=== PATIENT | female | born 1945 | race Caucasian/White ===

== ENCOUNTER 2016-09-04 14:48 | Observation (INO) | payer MEDICARE, OTHER ==
[~2016-09-04] VITALS: Ht 162.6 cm; Wt 90.0 kg
[~2016-09-04 14:48] MED LIST: AVAPRO TAB150 MG/TAB PO; CELEXA 20MG20 MG/TAB PO; MULTI VITAMINS1 TAB PO; PREMPRO 0.3 MG-1 TAB PO; PRILOSEC 20MG20 MG PO; TYLENOL 325MG325 MG PO; VITAMIN D32000 I1 PO; ZYRTEC 10MG10 MG PO
[2016-09-04 15:20] VITALS: BP 168/80; PULSE 94; TEMP 97.6
[2016-09-04] MEDS ORDERED: CEFACLOR500 M2 PO (16:11)
[2016-09-04] MEDS ORDERED: PRILOSEC 20MG20 MG PO (16:12)
[2016-09-04 17:31] VITALS: BP 168/80; PULSE 87; TEMP 983.6
[2016-09-04 20:19] LABS: PH 7 (5-8); URINE APPEARANCE Clear; URINE BILIRUBIN Negative (NEGATIVE); URINE COLOR Yellow; URINE GLUCOSE Negative (NEGATIVE); URINE KETONE Trace (NEGATIVE); URINE UROBILINOGEN Negative (NEGATIVE)
[2016-09-04 20:20] LABS: URINE BLOOD Negative (NEGATIVE)
[2016-09-04 20:37] LABS: SQUAMOUS EPITHELIAL 0-2 /hpf; URINE WBC 0-2 /hpf
[2016-09-04] MEDS ORDERED: AVAPRO300 M1 PO (21:35)
[2016-09-04] MEDS ORDERED: PREMPRO 0.3 MG-1 TAB PO (21:37)
[2016-09-04 22:02] VITALS: BP 176/99; PULSE 88; TEMP 99.3
[2016-09-04 22:30] VITALS: BP 127/83
[2016-09-05 01:42] VITALS: BP 142/84; PULSE 89; TEMP 98.2
[2016-09-05 05:26] VITALS: BP 129/63; PULSE 84; TEMP 98.3
[2016-09-05 10:17] VITALS: BP 132/80; PULSE 111; TEMP 97.5
== END 2016-09-05 11:08 | disposition home or self-care (01) ==
LOC: SURG 14:48
PROVIDERS: Urology
DX: N20.0 Calculus of kidney (principal); E83.52 Hypercalcemia; I10 Essential (primary) hypertension; K58.9 Irritable bowel syndrome, unspecified; M81.0 Age-related osteoporosis without current pathological fracture; E55.9 Vitamin D deficiency, unspecified; E21.3 Hyperparathyroidism, unspecified; K57.90 Diverticulosis of intestine, part unspecified, without perforation or abscess without bleeding; L40.9 Psoriasis, unspecified; Z80.52 Family history of malignant neoplasm of bladder; Z80.0 Family history of malignant neoplasm of digestive organs; Z87.891 Personal history of nicotine dependence
CPT/HCPCS: G0378; G0379; J0696; J1170; J2405; J7120

== ENCOUNTER → 2017-04-08 | Outpatient (CLI) | payer MEDICARE, OTHER ==
[~2017-04-08] MED LIST changes: +AVAPRO300 M1 PO; +CEFACLOR500 M2 PO
== END ==
LOC: MC.RAD 13:00
DX: Z12.31 Encounter for screening mammogram for malignant neoplasm of breast (principal)

== ENCOUNTER → 2019-10-07 | Outpatient (CLI) | payer MEDICARE, OTHER | LOC: MC.RAD 12:00 | DX: Z12.31 Encounter for screening mammogram for malignant neoplasm of breast (principal) ==

== ENCOUNTER → 2019-11-09 | Outpatient (CLI) | payer MEDICARE, OTHER | LOC: COL.RAD 11-04 08:30 | DX: N13.2 Hydronephrosis with renal and ureteral calculous obstruction (principal); K57.30 Diverticulosis of large intestine without perforation or abscess without bleeding ==

== ENCOUNTER 2019-11-23 16:44 | Observation (INO) | payer MEDICARE, OTHER ==
[~2019-11-23] VITALS: Ht 162.6 cm; Wt 82.4 kg
[~2019-11-23 16:44] MED LIST changes: -MULTI VITAMINS1 TAB PO; +ONE-A-DAY ESSE1 EACH PO
[2019-11-23 18:28] VITALS: BP 159/82; PULSE 75; TEMP 98
--- NOTE | 2019-11-23 18:37 | NUR ---
Patient up to room by wheelchair. Stern to dependent drainage with hazy pink urine in bag. Oriented to room. Bed alarm on. Will report off to overnight houseperson.
[2019-11-23 23:27] VITALS: BP 156/87; PULSE 80; TEMP 97.5
[2019-11-24 03:41] VITALS: BP 161/81; BP 177/92; PULSE 67; TEMP 97.8
--- NOTE | 2019-11-24 04:40 | NUR ---
Patient has slept well throughout the night. Noted to be confused about where and why she is here. Reported that patient has problems with memory and has dementia. 5 page attempted, but patient was confused. 5 page completed with information on the chart. Unable to complete med rec d/t patient. Patient continues to be NPO. LR continues to right hand. Denies any needs. Will continue to monitor.
[2019-11-24] MEDS ORDERED: COLACE 100100 MG/CAP PO (08:23)
[2019-11-24 09:36] VITALS: BP 172/88; PULSE 79; TEMP 98.6
--- NOTE | 2019-11-24 10:30 | NUR ---
Patient has been very confused today. Discontinuing dover catheter at this time. Removed 10ml from catheter balloon, and pulled dover out. Patient tolerated it well. Leena-care provided. Patient stated she is incontinent and voids all the time. She also stated she does not walk and has a lot of falls at home. Patient denies nausea. Only complaints of pain or to her lower back, she has chronic pain. No other changes at this time. Call light within reach. Bed alarm on.
[2019-11-24 11:52] VITALS: BP 177/79; PULSE 83; TEMP 98.3
[2019-11-24 15:52] VITALS: BP 167/80; PULSE 92; TEMP 98.9
--- NOTE | 2019-11-24 16:57 | NUR ---
The patient's nurse informed EDDIE that the patient states she has lots of falls at home. Mini Shifter met with the patient to complete initial intake. The patient lives in [place] with her daughter and . The patient has a cane and walker. The patient's PCP is Dr. Ellis and patient receives medications from [email or web address] in . The patient does not have advanced directives in the EMR. The patient would like to go home at discharge. EDDIE offered HHS and the patient states the house is to messy for anyone to come over. The patient reports falling out of bed many times at night. Per patient "there is lots of falling down at least 3 times a week." The patient states there is are lots of pets in the home, "four dogs and lots of kittens" and "they poop and pee everywhere." When asked about cleaning she states "I have not cleaned since June." Per patient she is "not allowed" to go outside because the steps are not sturdy. Per patient her daughter "tucks her in (bed) tight" so that she will not fall out of bed. She reports incontinence at night. She states she eats "only junk food and sweets." cushion worker contacted the patient's . He states the patient hoards and has things everywhere. SW discussed HHS with him and he would like to speak to their daughter about it. EDDIE attempted to contact the patient's daughter, Hyun left message. EDDIE contacted Ayah Berumen with [facility]. EDDIE made a APS report. Intake # [id number].
--- NOTE | 2019-11-24 18:00 | NUR ---
This afternoon patient stated she is at home alone a lot and she falls a lot. She stated her daughter helps her in the afternoons but in the daytime nobody is there to help so she crawls to the bathroom a lot because she can't walk or she falls and can't get back up. Notified Social work and put in orders for PT/OT. Patient stated she does not want to go to a custodial. Explained that her current situation does not sound safe though and maybe some PT will help. Patient verbalized understanding. No other changes at this time. Call light within reach.
[2019-11-24 19:29] VITALS: BP 175/90; PULSE 92; TEMP 98.4
--- NOTE | 2019-11-24 20:00 | NUR ---
Received report from ROXANA Lomeli. Pt is currently awake and sitting up in bed. Pt has her call light within reach and her bed is in lowest position.
[2019-11-24 23:37] VITALS: BP 141/70; PULSE 85; TEMP 98.4
--- NOTE | 2019-11-25 01:00 | NUR ---
Pt has took little short naps during the night. Pt was incontinent throughout the night. Pt did inform me that she does this all the time. She stated that she just goes and goes. Pt is currently in bed and has he call light within reach at this time.
[2019-11-25 04:25] VITALS: BP 144/79; PULSE 76; TEMP 98.4
--- NOTE | 2019-11-25 07:00 | NUR ---
Reported off to ROXANA Lomeli. Pt is currently sitting up in bed and eating breakfast. Pt has her call light within reach and her bed is in lowest position .
[2019-11-25 07:53] VITALS: BP 147/89; PULSE 85; TEMP 98.9
--- NOTE | 2019-11-25 09:37 | NUR ---
Home Care Assistant contacted the patient's , Balbir regarding HHS. Balbir was hesitant to set up HHS but then was agreeable. Balbir states their daughter will transport the patient today after 1600. Since the patient is obs status the PCP will need to set up HHS. EDDIE contacted Ayah Berumen RN CM with [facility]. Ayah will collaborate with Dr. Ellis to set up [facility] for the patient.
--- NOTE | 2019-11-25 11:00 | NUR ---
Social work has been working hard to figure arrangements for patient to go home safely. So far the best we can get is home health. Patient is upset about needing assistance at home. She wants to be able to stay home. Explained she needs to work on getting stronger and getting some physical therapy. She verbalized understanding. She continues to be incontinent. No other changes at this time. Call light within reach. PT and OT worked with her and she was able to take a few steps with walker. Patient is up in the chair and chair alarm is on.
--- NOTE | 2019-11-25 11:38 | NUR ---
PT/OT is recommending SNF for the patient. EDDIE contacted the patient's , left message. EDDIE contacted the patient's daughter, Hyun to discuss placement. The patient is obs status and has not been hospitalized in the last 30 days. The patient would have to be private pay at a prison for post acute rehab. The family will not and cannot afford to private pay. However, Hyun was agreeable to sending referral to [facility]. Hyun reports the patient is to have an appointment with Dr. Saini and an appointment with the PCP. Hyun states that the patient refuses to use shower equipment purchased for her. Per Hyun, the patient does not want help and does not cook due to her forgetfulness. The patient's brings food to the patient from local diners. Hyun reports that the patient sometimes has trouble swallowing her medications. EDDIE informed HERMINIA Kumar Director of the referral. EDDIE contacted Mandi with APS and she reports the case was assigned to her. ST was ordered for the patient. EDDIE collaborated the above information with the patient's nurse.
[2019-11-25 12:38] VITALS: BP 158/85; PULSE 82; TEMP 98.1
--- NOTE | 2019-11-25 13:10 | NUR ---
[facility] cannot accept the patient. Accelerator Operator to inform Hyun.
--- NOTE | 2019-11-25 13:55 | NUR ---
The patient's , Balbir contacted EDDIE. EDDIE informed him of PT/OT recommendations and [facility] decision of not accepting . He was agreeable to HHS for the patient and having PCP choose an agency. The patient will discharge today, 11/24 with [facility]. These services were arranged by Ayah Berumen at [facility]. EDDIE attempted to contact Ayah to provide an update. Ayah reports that Dr. Ellis chose [facility] to provide HHS. There are no additional needs at this time.
[2019-11-25] MEDS ORDERED: LEVAQUIN 5500 MG/TA1 PO (16:33)
--- NOTE | 2019-11-25 17:50 | NUR ---
Discharge instructions discussed with patient and her daughter. No questions verbalized. Discussed what to do when home health comes to see her. Patient and daughter verbalized understanding. Copies of discharge instructions sent with patient. Earlier patients daughter stated she can not take pills very well and has issues with swallowing liquids. ST seen patient and stated she did fine, no issues with liquids or pills. Explained that the Dr's office will notify them of her follow up appointment. Called in prescription for levaquin to [facility] in [place]. Call belongings packed up and sent with patient. Patient walked out via wheel chair by Tonio PARKER.
== END 2019-11-25 17:50 | disposition home health service (06) ==
LOC: SURG 16:44
PROVIDERS: ADMIT Urology
DX: N20.2 Calculus of kidney with calculus of ureter (principal); N13.8 Other obstructive and reflux uropathy; N99.71 Accidental puncture and laceration of a genitourinary system organ or structure during a genitourinary system procedure; E21.3 Hyperparathyroidism, unspecified; R32 Unspecified urinary incontinence; R35.0 Frequency of micturition; F32.9 Major depressive disorder, single episode, unspecified; I10 Essential (primary) hypertension; L40.9 Psoriasis, unspecified; K58.9 Irritable bowel syndrome, unspecified; N87.9 Dysplasia of cervix uteri, unspecified; M81.0 Age-related osteoporosis without current pathological fracture; M19.90 Unspecified osteoarthritis, unspecified site; E66.01 Morbid (severe) obesity due to excess calories; Z68.33 Body mass index [BMI] 33.0-33.9, adult; Z80.52 Family history of malignant neoplasm of bladder; Z88.7 Allergy status to serum and vaccine; Z91.040 Latex allergy status; Z91.041 Radiographic dye allergy status; Z79.899 Other long term (current) drug therapy; Z80.0 Family history of malignant neoplasm of digestive organs; Z83.3 Family history of diabetes mellitus; Z87.891 Personal history of nicotine dependence; Z83.2 Family history of diseases of the blood and blood-forming organs and certain disorders involving the immune mechanism
CPT/HCPCS: G0378; J1956; J7120

== ENCOUNTER → 2019-12-21 | Outpatient (CLI) | payer MEDICARE, OTHER ==
[~2019-12-21] MED LIST changes: +COLACE 100100 MG/CAP PO; +LEVAQUIN 5500 MG/TA1 PO
== END ==
LOC: COL.RAD 12:10
DX: I67.9 Cerebrovascular disease, unspecified (principal)

== ENCOUNTER → 2020-01-24 | Outpatient (CLI) | payer MEDICARE, OTHER | LOC: COL.VAS 12:30 | DX: M79.662 Pain in left lower leg (principal); M79.661 Pain in right lower leg; M79.89 Other specified soft tissue disorders ==

== ENCOUNTER → 2020-03-02 | Outpatient (CLI) | payer MEDICARE, OTHER | LOC: COL.RAD 03-01 10:30 | DX: E21.3 Hyperparathyroidism, unspecified (principal) | CPT/HCPCS: A9500 ==

== ENCOUNTER → 2020-03-24 | Outpatient (CLI) | payer MEDICARE, OTHER | LOC: COL.RAD 14:00 | DX: R25.2 Cramp and spasm (principal) ==

== ENCOUNTER 2022-02-11 12:03 | Emergency (ER) | payer MEDICARE, OTHER ==
[~2022-02-11] VITALS: Ht 167.6 cm; Wt 78.6 kg
[2022-02-11 12:06] VITALS: TEMP 98.3
[2022-02-11 14:27] LABS: COLLECTION METHOD CLEAN CATCH
[2022-02-11 14:35] LABS: BASO # 0.1 K/mm3 (0.0-0.2); EOS # 0.2 K/mm3 (0.0-0.7); EOS % 2.5 % (0.0-4.0); GRAN # 5.3 K/mm3 (1.4-6.5); GRAN % 65.5 % (42.2-75.2); HEMATOCRIT 45.1 % (37.0-47.0); HEMOGLOBIN 15.1 g/dl (12.5-16.0); LYMPH # 1.9 K/mm3 (1.2-3.4); LYMPH % 23.5 % (20.0-51.0); MEAN CELL VOLUME 89 fl (80.0-100.0); MEAN CORPUSCULAR HEMOGLOBIN 30 pg (27-31); MEAN CORPUSCULAR HGB CONC 34 g/dl (33.0-37.0); MEAN PLATELET VOLUME 10.5 fl (7.4-10.4); MONO # 0.6 K/mm3 (0.1-0.6); MONO % 7.1 % (1.7-9.3); PLATELET COUNT 332 K/mm3 (130-400); RED BLOOD COUNT 5.05 M/mm3 (4.10-5.30); REDCELL DISTRIBUTION WIDTH-CV 12.4 % (11.5-14.5)
[2022-02-11 14:48] LABS: MUCOUS Present (NOT PRESENT); SQUAMOUS EPITHELIAL 0-2 /hpf (0-10); URINE BACTERIA Rare /hpf (NONE SEEN); URINE CALCIUM OXALATE CRYSTAL Present (NOT PRESENT); URINE RBC >50 /hpf (0-2)
[2022-02-11 14:51] LABS: URINE APPEARANCE Hazy (CLEAR/HAZY); URINE COLOR Yellow (YELLOW); URINE GLUCOSE Negative (NEGATIVE); URINE KETONE Negative (NEGATIVE); URINE NITRATE Negative (NEGATIVE); URINE PROTEIN(semi-quant) TRACE (NEGATIVE); URINE UROBILINOGEN 0.2 (NEGATIVE)
[2022-02-11 14:52] LABS: ALBUMIN 4.2 gm/dL (3.4-4.8); BILIRUBIN,TOTAL 1.5 mg/dL (0.2-1.2); CALCIUM 10.5 mg/dL (8.4-10.2); CREATININE, serum 1.14 mg/dL (0.57-1.11); POTASSIUM 3.6 mmol/L (3.5-4.5); TOTAL PROTEIN 8.1 gm/dL (6.2-8.1); URINE BLOOD 2+ (NEGATIVE)
[2022-02-11] MEDS ORDERED: CEPHALEXIN500 M1 PO (16:01)
[2022-02-11 16:11] VITALS: BP 145/90; PULSE 82
== END 2022-02-11 16:24 | disposition home or self-care (01) ==
LOC: COL.ER 12:03
PROVIDERS: Emergency Medicine
DX: N30.91 Cystitis, unspecified with hematuria (principal); K82.8 Other specified diseases of gallbladder; R74.8 Abnormal levels of other serum enzymes; R74.01 Elevation of levels of liver transaminase levels; Z87.442 Personal history of urinary calculi; Z91.040 Latex allergy status; Z28.310 Unvaccinated for COVID-19
CPT/HCPCS: J0696; J2270; J2765; J7120

== ENCOUNTER → 2022-02-12 | Outpatient (CLI) | payer MEDICARE, OTHER ==
[~2022-02-12] MED LIST changes: +CEPHALEXIN500 M1 PO
== END ==
LOC: COL.RAD 08:07
DX: N20.0 Calculus of kidney (principal); R10.11 Right upper quadrant pain